=== PATIENT | female | born 1960 | race Asian ===

== ENCOUNTER 2018-07-10 15:12 | Emergency (ER) | payer OTHER ==
[2018-07-10] MEDS ORDERED: NACL 0.9% 1000 ML 1,000 ML IV ONE (15:55)
[2018-07-10] MEDS ORDERED: REGLAN IV ONE (15:55)
[2018-07-10] MEDS ORDERED: MORPHINE IV ONE ×2 (15:56→22:02)
--- NOTE | 2018-07-10 15:58 | Emergency Department Report ---
HPI - General Chief Complaint: Back Pain/Injury Time Seen by Provider: 07/10/18 15:46 - HPI HPI: 57-year-old female presents to the emergency department via EMS from home with complaint of left-sided back and flank pain that has been going on for the past few hours. The patient says "I think I'm passing a kidney stone." She has a history of kidney stones and says "it is always the left side." She has a urologist in [place] but cannot remember their name currently. Her primary care physician is Dr. Guillen. She has some nausea without vomiting, hematuria seen, but denies any fever. She has not taken anything for her symptoms prior to presentation. ED Past Medical Hx - Past Medical History Previous Medical History?: Yes Hx Kidney Stones: Yes Hx Psychiatric Treatment: Yes Hx COPD: Yes Additional medical history: MAJOR DEPRESSION - Social History Smoking Status: Never Smoker Substance Use Type: None - Medications Home Medications: Home Medications Medication Instructions Recorded Confirmed Last Taken Type ALBUTEROL Inhaler (OR & NICU) 25.5 gm PO Q6H 07/10/18 07/10/18 Unknown History [ProAir HFA Inhaler] Citalopram Hydrobromide [Celexa] 40 mg PO DAILY 07/10/18 07/10/18 Unknown History Fluticasone/Salmeterol [Advair 1 puff PO BID 07/10/18 07/10/18 Unknown History Diskus 100-50 mcg] Gabapentin [Neurontin] 1,200 mg PO TID 07/10/18 07/10/18 Unknown History HYDROcodone/APAP 5-325 [[place] 1 each PO Q6HR PRN #10 tablet 07/10/18 Unknown Rx 5/325] Metoclopramide [Reglan] 10 mg PO TID PRN #10 tab 07/10/18 Unknown Rx Oxycodone HCl [Oxycodone HCl ER] 30 mg PO Q4-6H 07/10/18 07/10/18 Unknown History clonazePAM [Clonazepam] 0.5 mg PO TID 07/10/18 07/10/18 Unknown History ED Review of Systems ROS: Stated complaint: FLANK PAIN Other details as noted in HPI Comment: All other systems reviewed and negative Constitutional: denies: chills, fever Eyes: denies: eye pain, eye discharge, vision change ENT: denies: ear pain, throat pain Respiratory: denies: cough, shortness of breath, wheezing Cardiovascular: denies: chest pain, palpitations Gastrointestinal: abdominal pain (left flank pain), nausea Genitourinary: dysuria, hematuria. denies: discharge Musculoskeletal: back pain. denies: arthralgia Skin: denies: rash, lesions Neurological: denies: headache, weakness, paresthesias Physical Exam - Physical Exam Vital Signs: Vital Signs 07/10/18 15:29 Temperature 98.2 F Pulse Rate 70 Respiratory 14 Rate Blood Pressure 140/65 O2 Sat by Pulse 100 Oximetry Physical Exam: GENERAL: The patient is well-developed well-nourished. HENT: Normocephalic. Atraumatic. Patient has moist mucous membranes. EYES: Extraocular motions are intact. Pupils equal reactive to light bilaterally. NECK: Supple. Trachea is midline. CHEST/LUNGS: Clear to auscultation. There is no respiratory distress noted. HEART/CARDIOVASCULAR: Regular. There is no tachycardia. There is no murmur. ABDOMEN: Abdomen is soft. Unable to reproduce left flank pain to palpation. Patient has normal bowel sounds. There is no abdominal distention. SKIN: Skin is warm and dry. NEURO: The patient is awake, alert, and oriented. The patient is cooperative. The patient has no focal neurologic deficits. The patient has normal speech. MUSCULOSKELETAL: There is no tenderness or deformity. There is no limitation range of motion. There is no evidence of acute injury. ED Course Vital Signs 07/10/18 15:29 Temperature 98.2 F Pulse Rate 70 Respiratory 14 Rate Blood Pressure 140/65 O2 Sat by Pulse 100 Oximetry ED Medical Decision Making - Lab Data Result diagrams: 07/10/18 16:01 07/10/18 16:01 - Radiology Data Radiology results: report reviewed EXAM: US RENAL BILAT HISTORY: flank pain, abnormal CT of left kidney TECHNIQUE: Ultrasound kidneys PRIORS: Correlated with prior CT of the same date FINDINGS: Right kidney is 9.1 x 4.9 x 5.1 centimeters and. Cortical thickness 1.1 centimeters. Within the upper pole the right kidney there is an anechoic rounded focus measuring 1.9 x 1.4 x 1.2 centimeters consistent appearance with a simple cyst. Price are well-defined. The left kidney measures 10.1 x 5.8 x 4.2 centimeters. Cortical thickness 1.4 centimeters. No abnormal mass seen. Renal echogenicity appears within normal limits bilaterally. No evidence for hydronephrosis. IMPRESSION: Simple cyst within the right kidney Otherwise negative study EXAM: CT ABDOMEN PELVIS WO CON HISTORY: left flank pain, history of kidney stones TECHNIQUE: CT abdomen and pelvis without contrast PRIORS: None. FINDINGS: No acute abnormality identified in the lung bases. There are 2 low-density foci within the liver. One of the cysts with in the medial left lobe measuring 1.9 centimeters. Within the inferior aspect of the mid right lobe there is a 0.74 centimeter low-density focus. These are indeterminate incompletely characterized statistically most likely cyst or hemangioma. The spleen demonstrates normal size and attenuation. No pancreatic abnormalities seen. There is mild right hydronephrosis. Within the proximal right ureter at the level of the lower pole of the kidney there is a 0.54 centimeter calculus which appears obstructing or partially obstructing. Within the right kidney at the upper pole there is a subcortical low-density focus 1.1 x 0.65 centimeters this does appear slightly complex indeterminate could be cystic or solid and should be further characterized. Left kidney demonstrates no evidence for hydronephrosis or nephrolithiasis The adrenal glands are unremarkable. There is small umbilical hernia containing fatty tissue. No bowel loops or inflammatory change seen within the hernia sac. Abdominal aorta is normal in caliber. No pathologically enlarged lymph nodes are identified. No signs of free fluid or free air No evidence of small bowel dilatation. The appendix is identified and is normal in size no adjacent inflammatory change seen. No pericolonic inflammatory changes are observed. Urinary bladder is unremarkable. Noted are degenerative changes lumbar spine with marked disc space narrowing at L3-L4, grade 1 spondylolisthesis at L4-5 and disc space narrowing at L4-5 L5-S1. IMPRESSION: Proximal right ureteral calculus 0.54 centimeters with moderate hydronephrosis Indeterminate low-density focus upper pole the right kidney. Should be further characterized. If IV contrast contraindicated for this patient could be further evaluated with ultrasound. Small umbilical hernia Low-density foci within the liver is noted above incompletely characterized however probable cyst or hemangioma Degenerative changes noted lower lumbar spine with spondylolisthesis at L4-5 Transcribed By: JEET Dictated By: SARA SPICER MD Electronically Authenticated By: SARA SPICER MD Signed Date/Time: 07/10/18 4032 - Medical Decision Making Patient presents with some left-sided flank pain. She has a history of kidney stones and feels like she may be passing one on the left. Labs were mostly unremarkable but there was some blood in the urine. No signs of urinary tract infection. CT scan of the abdomen and pelvis shows a proximal right ureteral calculus at about 0.5 cm with some right-sided hydronephrosis. This is not the area of the patient's discomfort however. CT also showed some low-density foci within the right kidney and they recommended IV contrast or an ultrasound. An ultrasound was done that shows that it is a simple cyst. The patient has good follow-up with urology and primary care. She is improved. Vital signs stable including being afebrile. She has been given a strainer. She will get pain medication. Patient has been encouraged to follow up with her urologist and primary care physician but to return to the emergency department with any return of her nausea and vomiting, development of fever, inability to urinate, worsening of her symptoms or any acute distress. - Differential Diagnosis nephrolithiasis, hydronephrosis, colitis, pyelonephritis, UTI Critical Care Time: No Critical care attestation.: If time is entered above; I have spent that time in minutes in the direct care of this critically ill patient, excluding procedure time. ED Disposition Clinical Impression: Left flank pain, Nephrolithiasis, Hypokalemia Disposition: DC-01 TO HOME OR SELFCARE Is pt being admited?: No Condition: Stable Instructions: Kidney Stones (ED), Renal Colic (ED), Hypokalemia (ED), How to Strain Your Urine (ED), Flank Pain (ED) Additional Instructions: Please follow-up with your primary care physician and your urologist. Return to the emergency Department with any worsening of her symptoms, inability to urinate, development of a fever, intractable vomiting, or if any acute distress. Strain your urine. You have been prescribed a medication that is sedating and therefore should not be taken prior to driving, working, and responsible for children and in no way should be mixed with alcohol of any quantity. Prescriptions: HYDROcodone/APAP 5-325 [[place] 5/325] 1 each PO Q6HR PRN #10 tablet PRN Reason: Pain Metoclopramide [Reglan] 10 mg PO TID PRN #10 tab PRN Reason: Nausea Referrals: PRIMARY CARE, [Primary Care Provider] - [facility] Urologist, Your [Other] - [facility] Time of Disposition: 20:15
[2018-07-10 16:26] LABS: Basophils % (Auto) 0.1 % (0.0-1.8); Hematocrit 41.8 % (30.3-42.9); Hemoglobin 14.3 gm/dl (10.1-14.3); Lymphocytes # (Auto) 0.8 K/mm3 (1.2-5.4); Lymphocytes % (Auto) 9.5 % (13.4-35.0); Mean Corpuscular HGB Conc 34 % (30-34); Mean Corpuscular Hemoglobin 29 pg (28-32); Mean Corpuscular Volume 84 fl (79-97); Monocytes # (Auto) 0.3 K/mm3 (0.0-0.8); Platelet Count 304 K/mm3 (140-440); Red Blood Count 5.01 M/mm3 (3.65-5.03); Red Cell Distribution Width 14.1 % (13.2-15.2)
[2018-07-10 16:35] LABS: Alanine Aminotransferase 25 units/L (7-56); Albumin 4.3 g/dL (3.9-5); BUN/Creatinine Ratio 18; Blood Urea Nitrogen 11 mg/dL (7-17); Calcium 9.5 mg/dL (8.4-10.2); Hemolysis Index 8
[2018-07-10] MEDS ORDERED: TORADOL IV ONE (17:10)
[2018-07-10] MEDS ORDERED: K-DUR PO ONE (17:10)
--- NOTE | 2018-07-10 18:40 | Cat Scan Report ---
FINAL REPORT EXAM: CT ABDOMEN PELVIS WO CON HISTORY: left flank pain, history of kidney stones TECHNIQUE: CT abdomen and pelvis without contrast PRIORS: None. FINDINGS: No acute abnormality identified in the lung bases. There are 2 low-density foci within the liver. One of the cysts with in the medial left lobe measuring 1.9 centimeters. Within the inferior aspect of the mid right lobe there is a 0.74 centimeter low-density focus. These are indeterminate incompletely characterized statistically most likely cyst or hemangioma. The spleen demonstrates normal size and attenuation. No pancreatic abnormalities seen. There is mild right hydronephrosis. Within the proximal right ureter at the level of the lower pole of the kidney there is a 0.54 centimeter calculus which appears obstructing or partially obstructing. Within the right kidney at the upper pole there is a subcortical low-density focus 1.1 x 0.65 centimeters this does appear slightly complex indeterminate could be cystic or solid and should be further characterized. Left kidney demonstrates no evidence for hydronephrosis or nephrolithiasis The adrenal glands are unremarkable. There is small umbilical hernia containing fatty tissue. No bowel loops or inflammatory change seen within the hernia sac. Abdominal aorta is normal in caliber. No pathologically enlarged lymph nodes are identified. No signs of free fluid or free air No evidence of small bowel dilatation. The appendix is identified and is normal in size no adjacent inflammatory change seen. No pericolonic inflammatory changes are observed. Urinary bladder is unremarkable. Noted are degenerative changes lumbar spine with marked disc space narrowing at L3-L4, grade 1 spondylolisthesis at L4-5 and disc space narrowing at L4-5 L5-S1. IMPRESSION: Proximal right ureteral calculus 0.54 centimeters with moderate hydronephrosis Indeterminate low-density focus upper pole the right kidney. Should be further characterized. If IV contrast contraindicated for this patient could be further evaluated with ultrasound. Small umbilical hernia Low-density foci within the liver is noted above incompletely characterized however probable cyst or hemangioma Degenerative changes noted lower lumbar spine with spondylolisthesis at L4-5
[2018-07-10] MEDS ORDERED: BENADRYL IV ONE (18:57)
--- NOTE | 2018-07-10 21:41 | Ultrasound Report ---
FINAL REPORT EXAM: US RENAL BILAT HISTORY: flank pain, abnormal CT of left kidney TECHNIQUE: Ultrasound kidneys PRIORS: Correlated with prior CT of the same date FINDINGS: Right kidney is 9.1 x 4.9 x 5.1 centimeters and. Cortical thickness 1.1 centimeters. Within the upper pole the right kidney there is an anechoic rounded focus measuring 1.9 x 1.4 x 1.2 centimeters consistent appearance with a simple cyst. Price are well-defined. The left kidney measures 10.1 x 5.8 x 4.2 centimeters. Cortical thickness 1.4 centimeters. No abnormal mass seen. Renal echogenicity appears within normal limits bilaterally. No evidence for hydronephrosis. IMPRESSION: Simple cyst within the right kidney Otherwise negative study
[2018-07-10 23:50] LABS: Amorphous Crystals,Urine 1+; Bilirubin,Urine NEG (Negative); Blood,Urine LG (Negative); Color,Urine Amber (Yellow); Mucus,Urine 3+ /HPF; Urobilinogen,Urine < 2.0 mg/dL (<2.0)
[2018-07-10 23:53] LABS: RBC,Urine > 182.0 /HPF (0.0-6.0)
[2018-07-11] MEDS ORDERED: NORCO 7.5/325 PO ONE (01:03)
[2018-07-11] MEDS ORDERED: REGLAN IV ONE (01:29)
[2018-07-11 03:12] VITALS: BP 140/65
== END 2018-07-11 03:20 | disposition home or self-care (01) ==
LOC: ED 15:12
DX: N20.0 Calculus of kidney (principal); E87.6 Hypokalemia; J44.9 Chronic obstructive pulmonary disease, unspecified; F32.9 Major depressive disorder, single episode, unspecified; K52.9 Noninfective gastroenteritis and colitis, unspecified; Z88.0 Allergy status to penicillin; Z88.6 Allergy status to analgesic agent; Z88.8 Allergy status to other drugs, medicaments and biological substances
CPT/HCPCS: 36415; 51701; 74176; 76770; 80053; 81001; 85025; 96361; 96374; 96375; 96376; 99284; J1200; J1885; J2270; J2765; J7030